=== PATIENT | male | born 1985 | race Caucasian/White ===

== ENCOUNTER 2016-11-18 12:55 | Inpatient (IN) | payer BC ==
[2016-11-18 14:09] VITALS: BMI 24.7
--- NOTE | 2016-11-18 14:24 | HP ---
COWS - Scale Resting Pulse: 0= [place] 80 or Below Sweatin=Flushed/Facial Moisture Restless Observation: 3= Extraneous Movement Pupil Size: 2= Moderately Dilated Bone or Joint Aches: 2= Severe Diffuse Aches Runny Nose/ Eye Tearin= Runny Nose/Eyes GI Upset > 30mins: 3= Vomiting/Diarrhea Tremor Observation: 2= Slight Tremor Visible Yawning Observation: 2= >3x During Session Anxiety or Irritability: 2=Irritable/Anxious Goose Flesh Skin: 0=Smooth Skin COWS Score: 20 CIWA Score - CIWA Score Nausea/Vomitin Muscle Tremors: 3 Anxiety: 3 Agitation: 3 Paroxysmal Sweats: 2 Orientation: 0-Oriented Tacttile Disturbances: 2-Mild Itch/Numbness/Burn Auditory Disturbances: 2-Mild Harshness/Frighten Visual Disturbances: 2-Mild Sensitivity Headache: 2-Mild CIWA-Ar Total Score: 22 Admission ROS BHS - HPI Chief Complaint: i need help to stop using heroin,xanax,cocaine Allergies/Adverse Reactions: Allergies Allergy/AdvReac Type Severity Reaction Status Date / Time No Known Allergies Allergy Verified 11/18/16 14:13 History of Present Illness: this 31 years old male with heroin,xanax,cocaine dependence,seeking detox,last detox ,last detox in [place] in 12/21 several admissions in the past but relapsed anxiety and depression hepatitis c cellulitis both forearms longest period of sobriety 3 months Exam Limitations: No Limitations - Ebola screening Have you traveled outside of the country in the last 21 days: No Have you been sick,other than usual withdrawal symptoms: No - Review of Systems Constitutional: Chills, Diaphoresis, Loss of Appetite, Malaise, Night Sweats, Changes in sleep, Weakness, Unintentional Wgt. Loss EENT: reports: Tearing, Nose Congestion Respiratory: reports: No Symptoms reported Cardiac: reports: No Symptoms Reported GI: reports: Diarrhea, Nausea, Vomiting, Abdominal cramping : reports: No Symptoms Reported Musculoskeletal: reports: Back Pain, Joint Pain, Muscle Pain, Joint Stiffness Integumentary: reports: Dryness, Erythema (both fprearms) Neuro: reports: Headache, Tremors Endocrine: reports: No Symptoms Reported Hematology: reports: No Symptoms Reported Psychiatric: reports: Anxious, Depressed Patient History - Patient Medical History Hx Anemia: No Hx Asthma: No Hx Chronic Obstructive Pulmonary Disease (COPD): No Hx Cancer: No Hx Cardiac Disorders: No Hx Congestive Heart Failure: No Hx Hypertension: No Hx Hypercholesterolemia: No Hx Pacemaker: No HX Cerebrovascular Accident: No Hx Seizures: No Hx Dementia: No Hx Diabetes: No Hx Gastrointestinal Disorders: No Hx Liver Disease: Yes (hepatitis c) Hx Genitourinary Disorders: No Hx Sexually Transmitted Disorders: No Hx Renal Disease (ESRD): No Hx Thyroid Disease: No Hx Human Immunodeficiency Virus (HIV): (never been tested for hiv) Hx Hepatitis C: Yes (not treated under the care of pmd) Hx Depression: Yes (anxiety ) Hx Suicide Attempt: No Hx Bipolar Disorder: No Hx Schizophrenia: No Other Medical History: no suicidal.no homicidal - Patient Surgical History Past Surgical History: No - PPD History Previous Implant?: Yes Documented Results: Negative w/o proof PPD to be Administered?: Yes - Smoking Cessation Smoking history: Current every day smoker Have you smoked in the past 12 months: Yes Aproximately how many cigarettes per day: 20 Cigars Per Day: 0 Hx Chewing Tobacco Use: No Initiated information on smoking cessation: Yes 'Breaking Loose' booklet given: 11/18/16 - Substance & Tx. History Hx Alcohol Use: No Hx Substance Use: Yes Substance Use Type: Heroin, Tranquilizers Hx Substance Use Treatment: Yes (12/21 in [place]) - Substances Abused Heroin Route: Injection Frequency: Daily Amount used: 20 BAGS Age of first use: 23 Date of Last Use: 11/18/16 Alprazolam (Xanax) Route: Oral Frequency: Daily Amount used: 3-4 MG Age of first use: 17 Date of Last Use: 11/18/16 Crack Route: Smoking Frequency: Daily Amount used: $20 Age of first use: 28 Date of Last Use: 11/14/16 Family Disease History - Family Disease History Family Disease History: Heart Disease: Father (alcohol,deseased), CA: Mother ( of beasst on chemotherapy) Admission Physical Exam S - Vital Signs Vital Signs: Vital Signs - 24 hr 11/18/16 14:07 Temperature 98.6 F Pulse Rate 61 Respiratory 18 Rate Blood Pressure 113/61 - Physical General Appearance: Yes: Moderate Distress, Tremorous, Irritable, Sweating, Anxious HEENTM: Yes: Hearing grossly Normal, CEASAR, Pharynx Normal, Nasal Congestion Respiratory: Yes: Lungs Clear, Normal Breath Sounds, No Respiratory Distress Neck: Yes: Within Normal Limits Breast: Yes: Within Normal Limits Cardiology: Yes: Within Normal Limits, Regular Rhythm, Regular Rate, S1, S2 Abdominal: Yes: Within Normal Limits, Normal Bowel Sounds, Non Tender, Flat, Soft Genitourinary: Yes: Within Normal Limits Back: Yes: Muscle Spasm Neurological: Yes: Within Normal Limits, technology strategist II-XII NML intact, Fully Oriented, Alert, Motor Strength 5/5 Integumentary: Yes: Dry, Track Unger (erythema both forearms cellulitis) - Diagnostic (1) Opioid dependence with withdrawal Current Visit: Yes Status: Acute (2) Uncomplicated sedative, hypnotic or anxiolytic withdrawal Current Visit: Yes Status: Acute (3) Cocaine dependence Current Visit: Yes Status: Acute (4) Anxiety and depression Current Visit: Yes Status: Acute (5) Hepatitis C Current Visit: Yes Status: Acute (6) Cellulitis Current Visit: Yes Status: Acute Cleared for Admission [facility] - Detox or Rehab [facility] Level of Care: Medically Managed Detox Regimen/Protocol: Methadone/Valium [facility] Breath Alcohol Content Breath Alcohol Content: 0 Urine Drug Screen - Results Urine Drug Screen Results: ESPERANZA-Cocaine, OPI-Opiates, MDMA-Ecstasy, BZO- Benzodiazepines
[2016-11-18] MEDS ORDERED: ACETAMINOPHEN 325 MG TABLET (FP) PO PRN (14:42)
[2016-11-18] MEDS ORDERED: MAG HYDROX/AL HYDROX/SIMETH 30 ML UNIT-DOSE CUP PO PRN (14:42)
[2016-11-18] MEDS ORDERED: guaiFENesin/D-METHORPHAN HB 10 ML UNIT-DOSE CUPS PO PRN (14:42)
[2016-11-18] MEDS ORDERED: IBUPROFEN 400 MG TABLET (FP) PO PRN (14:42)
[2016-11-18] MEDS ORDERED: NICOTINE POLACRILEX 2 MG GUM BUC PRN (14:42)
[2016-11-18] MEDS ORDERED: diphenhydrAMINE HCL 50 MG CAPSULE PO PRN (14:42)
[2016-11-18] MEDS ORDERED: MENTHOL/PHENOL 1 EACH UD MM PRN (14:42)
[2016-11-18] MEDS ORDERED: MAGNESIUM CITRATE 300 ML BOTTLE PO PRN (14:42)
[2016-11-18] MEDS ORDERED: hydrOXYzine PAMOATE 50 MG CAPSULE (FP) PO PRN (14:42)
[2016-11-18] MEDS ORDERED: P-EPHED 60MG/TRIPROLIDI 2.5MG TABLET PO PRN (14:42)
[2016-11-18] MEDS ORDERED: MAGNESIUM HYDROX 2400MG/30ML ORAL SUSPENSION 30 ML CUP PO PRN (14:42)
[2016-11-18] MEDS ORDERED: LOPERAMIDE HCL 2 MG CAPSULE PO PRN (14:42)
[2016-11-18] MEDS ORDERED: CYCLOBENZAPRINE HCL 10 MG TABLET (FP) PO PRN (14:46)
[2016-11-18] MEDS ORDERED: diazePAM 5 MG TABLET PO ONE (14:53)
[2016-11-18] MEDS ORDERED: METHADONE HCL 10 MG TABLET (FOR DETOX USE ONLY) PO ONE ×2 (14:54→23:00)
[2016-11-18] MEDS: NICOTINE 21 MG/24 HOURS TOPICAL PATCH TD SCH (15:18)
[2016-11-18 16:45] LABS: URINE APPEARANCE CLEAR; URINE BILIRUBIN NEGATIVE (NEGATIVE); URINE BLOOD NEGATIVE (NEGATIVE); URINE COLOR LTYELLOW; URINE GLUCOSE (UA) NEGATIVE (NEGATIVE); URINE KETONE NEGATIVE (NEGATIVE); URINE LEUK ESTERASE NEGATIVE (NEGATIVE); URINE NITRITE NEGATIVE (NEGATIVE); URINE PROTEIN NEGATIVE (NEGATIVE); URINE UROBILINOGEN NEGATIVE mg/dL (0.2-1.0)
[2016-11-18] MEDS: diazePAM 5 MG TABLET PO SCH (22:36)
[2016-11-18] MEDS: THIAMINE HCL 100 MG TABLET (FP) PO SCH (22:36)
[2016-11-18] MEDS: SULFAMETHOXAZOLE/TRIMETHOPRIM 800MG/160MG D.S. TABLET PO SCH (22:36)
[2016-11-19] MEDS: diazePAM 5 MG TABLET PO SCH ×3 (07:25→22:38)
[2016-11-19] MEDS: diazePAM 5 MG TABLET PO PRN ×2 (09:02→20:10)
--- NOTE | 2016-11-19 09:30 | CONSULT ---
[facility] Psychiatric Consult - Data Date of interview: 11/19/16 Admission source: [facility] Identifying data: First admission to [facility] for this 31 y/o male seeking detox treatment on for cocaine,heroin and benzodiazepine (xanax ) dependence.Patient is single without children,domiciled,unemployed and supported by his mother. Substance Abuse History: Patient is a hostile and marginally cooperative historian." I am tired of your questions.What I need is a telephone.How can I get one ? ".Mr Chavez,however,aknowledges that he uses xanax,heroin ( intravenously),cocaine and cigarettes (one pack daily).Reluctant to offer details. Medical History: Hepatitis C and cellulitis (both arms). Psychiatric History: Patient reports a history of one psychiatric hospitalization at a facility in [place].No additional details given.Mr Chavez denies past history of OPD care (medications or psychotherapy).Denies any contact with psychiatrists/therapists in the community.No history of suicide attempts reported. Physical/Sexual Abuse/Trauma History: No information. Additional Comment: Urine Drug Screen Results : positive for cocaine,opiates, MDMA-Ecstasy and benzodiazepines. Mental Status Exam - Mental Status Exam Alert and Oriented to: Time, Place, Person Cognitive Function: Good Patient Appearance: Unkempt, Disheveled Mood: Hostile, Withdrawn Affect: Normal Range Patient Behavior: Inappropriate (walking around with pants below waistline and hands kept in groin ), Uncooperative Speech Pattern: Clear Voice Loudness: Normal Thought Process: Goal Oriented Thought Disorder: Not Present Hallucinations: Denies Suicidal Ideation: Denies Homicidal Ideation: Denies Insight/Judgement: Poor Sleep: Fair Appetite: Good Gait/Station: Normal Psychiatric Findings - Problem List ([place] 1, 2,3) (1) Cocaine dependence Current Visit: Yes Status: Acute (2) Opioid dependence with withdrawal Current Visit: Yes Status: Acute (3) Uncomplicated sedative, hypnotic or anxiolytic withdrawal Current Visit: Yes Status: Acute (4) Nicotine dependence Current Visit: Yes Status: Acute (5) MDMA abuse Current Visit: Yes Status: Acute (6) Substance induced mood disorder Current Visit: Yes Status: Acute (7) Cellulitis Current Visit: Yes Status: Acute (8) Hepatitis C Current Visit: Yes Status: Chronic - Initial Treatment Plan Initial Treatment Plan: No previous records at [facility] for review.[facility] report is appreciated.Psychoeducation is rejected by patient.Detoxification is in progress.Observation.
[2016-11-19] MEDS ORDERED: METHADONE HCL 10 MG TABLET (FOR DETOX USE ONLY) PO SCH (10:00)
[2016-11-19 10:28] LABS: MCH 27.2 pg (25.7-33.7); MEAN CELL VOLUME 82.3 fl (80-96); MEAN PLT VOLUME 9.1 fl (7.5-11.1); PLATELET COUNT 174 K/MM3 (134-434); RDW 14.8 % (11.9-15.9); WHITE BLOOD COUNT 7.6 K/mm3 (4.0-10.0)
[2016-11-19 10:35] LABS: ANION GAP 7 (8-16); CALCIUM 9.7 mg/dL (8.5-10.1); CO2 31 mmol/L (21-32); GLUCOSE,RANDOM 98 mg/dL (74-106); SGOT/AST 13 U/L (15-37); SGPT/ALT 22 U/L (12-78)
[2016-11-19 10:37] LABS: ALK PHOS 85 U/L (45-117); BILIRUBIN,TOTAL 0.3 mg/dL (0.2-1.0); TOT PROT 8.1 g/dl (6.4-8.2)
[2016-11-19] MEDS: SULFAMETHOXAZOLE/TRIMETHOPRIM 800MG/160MG D.S. TABLET PO SCH ×2 (10:45→22:38)
[2016-11-19] MEDS: PRENATAL VITAMINS W/ FOLIC ACID TABLET (FP) PO SCH (10:45)
[2016-11-19] MEDS: NICOTINE 21 MG/24 HOURS TOPICAL PATCH TD SCH (10:48)
--- NOTE | 2016-11-19 14:09 | PN ---
[facility] CIWA - CIWA Score Nausea/Vomitin-Mild Nausea/No Vomiting Muscle Tremors: 4-Moderate,w/Arms Extend Anxiety: 3 Agitation: 2 Paroxysmal Sweats: 3 Orientation: 2-Disoriented Date<2 days Tacttile Disturbances: 0-None Auditory Disturbances: 2-Mild Harshness/Frighten Visual Disturbances: 0-None Headache: 0-None Present CIWA-Ar Total Score: 17 S COWS - Scale Resting Pulse: 0= [place] 80 or Below Sweatin= Chills/Flushing Restless Observation: 1= Difficult to Sit Still Pupil Size: 0= Normal to Room Light Bone or Joint Aches: 2= Severe Diffuse Aches Runny Nose/ Eye Tearin= Runny Nose/Eyes GI Upset > 30mins: 1= Stomach Cramp Tremor Observation of Outstretched Hands: 2= Slight Tremor Visible Yawning Observation: 1= 1-2x During Session Anxiety or Irritability: 2=Irritable/Anxious Goose Flesh Skin: 3=Piloerection COWS Score: 15 [facility] Progress Note (SOAP) Subjective: Tremors, Fatigue, Anxious, Body Aches. Objective: PT. A & O X 2 (DISORIENTED ABOUT DAY / DATE). NO ACUTE DISTRESS. 11/19/16 14:08 Vital Signs Temperature 97.4 F L 11/19/16 13:27 Pulse Rate 68 11/19/16 13:27 Respiratory Rate 18 11/19/16 13:27 Blood Pressure 132/80 11/19/16 13:27 O2 Sat by Pulse Oximetry (%) Laboratory Tests 11/18/16 11/19/16 11/19/16 15:02 06:00 06:00 WBC 7.6 RBC 5.00 Hgb 13.6 Hct 41.1 MCV 82.3 MCH 27.2 MCHC 33.0 RDW 14.8 Plt Count 174 MPV 9.1 Sodium 138 Potassium 4.1 Chloride 100 Carbon Dioxide 31 Anion Gap 7 L BUN 10 Creatinine 1.0 Creat Clearance w eGFR > 60 Random Glucose 98 Calcium 9.7 Total Bilirubin 0.3 AST 13 L ALT 22 Alkaline Phosphatase 85 Total Protein 8.1 Albumin 4.0 Urine Color Ltyellow Urine Appearance Clear Urine pH 5.0 Ur Specific [place] 1.025 Urine Protein Negative Urine Glucose (UA) Negative Urine Ketones Negative Urine Blood Negative Urine Nitrite Negative Urine Bilirubin Negative Urine Urobilinogen Negative Ur Leukocyte Esterase Negative RPR Titer 11/19/16 06:00 WBC RBC Hgb Hct MCV MCH MCHC RDW Plt Count MPV Sodium Potassium Chloride Carbon Dioxide Anion Gap BUN Creatinine Creat Clearance w eGFR Random Glucose Calcium Total Bilirubin AST ALT Alkaline Phosphatase Total Protein Albumin Urine Color Urine Appearance Urine pH Ur Specific [place] Urine Protein Urine Glucose (UA) Urine Ketones Urine Blood Urine Nitrite Urine Bilirubin Urine Urobilinogen Ur Leukocyte Esterase RPR Titer Nonreactive LABS NOTED. Assessment: 11/19/16 14:09 WITHDRAWAL SYMPTOMS. Plan: CONTINUE DETOX. INCREASE PO FLUID INTAKE.
[2016-11-19] MEDS: THIAMINE HCL 100 MG TABLET (FP) PO SCH (22:38)
[2016-11-20] MEDS ORDERED: METHADONE HCL 5 MG TABLET (FOR DETOX USE ONLY) PO SCH (10:00)
[2016-11-20] MEDS ORDERED: diazePAM 5 MG TABLET PO SCH (10:00)
[2016-11-20] MEDS: PRENATAL VITAMINS W/ FOLIC ACID TABLET (FP) PO SCH (10:34)
[2016-11-20] MEDS: SULFAMETHOXAZOLE/TRIMETHOPRIM 800MG/160MG D.S. TABLET PO SCH (10:35)
[2016-11-20] MEDS: NICOTINE 21 MG/24 HOURS TOPICAL PATCH TD SCH (10:37)
--- NOTE | 2016-11-20 13:28 | EKG ---
Test Reason : Blood Pressure : / mmHG Vent. Rate : 051 BPM Atrial Rate : 051 BPM P-R Int : 136 ms QRS Dur : 090 ms QT Int : 432 ms P-R-T Axes : 010 -04 001 degrees QTc Int : 398 ms SINUS BRADYCARDIA OTHERWISE NORMAL ECG NO PREVIOUS ECGS AVAILABLE Confirmed by ANYI CAMARENA, DENISA ([id number]) on 11/20/2016 1:28:02 PM Referred By: TIANNA PEDRAZA Confirmed By:DENISA DE SANTIAGO MD
[2016-11-20 13:35] VITALS: BP 111/73; PULSE 72; TEMP 98.2
--- NOTE | 2016-11-20 13:47 | PN ---
S CIWA - CIWA Score Nausea/Vomitin-Mild Nausea/No Vomiting Muscle Tremors: 4-Moderate,w/Arms Extend Anxiety: 4-Mod. Anxious/Guarded Agitation: 4-Moderately Restless Paroxysmal Sweats: No Perspiration Orientation: 0-Oriented Tacttile Disturbances: 1-Very Mild Itch/Numbness Auditory Disturbances: 0-None Visual Disturbances: 0-None Headache: 1-Very Mild CIWA-Ar Total Score: 15 [facility] COWS - Scale Resting Pulse: 0= [place] 80 or Below Sweatin= Chills/Flushing Restless Observation: 3= Extraneous Movement Pupil Size: 0= Normal to Room Light Bone or Joint Aches: 1= Mild Discomfort Runny Nose/ Eye Tearin= Runny Nose/Eyes GI Upset > 30mins: 2= Nausea/Diarrhea Tremor Observation of Outstretched Hands: 2= Slight Tremor Visible Yawning Observation: 1= 1-2x During Session Anxiety or Irritability: 2=Irritable/Anxious Goose Flesh Skin: 0=Smooth Skin COWS Score: 14 [facility] Progress Note (SOAP) Subjective: Nausea, tremor, chills, runny nose, interrupted sleep. Patient stated that he last ate on Monday and that he drank 3 small containers of apple juice yesterday and he is refusing to eat or shower. Patient stated, "I want to ." As per patient, he hasn't been getting out of bed and hasn't taken a shower since his admission. As per patient, he is feeling depressed because he is here and his mother forced him to be here. As per patient, he's going to be spiteful and not do anything that his mother wants him to do. Search Engine Optimization Strategist later ask patient how he plans on killing himself and he responded, "I will figure it out." Patient told this science writer that he is going to leave AMA later today. Patient later denied SI and that he never said anything about wanting to . Patient is presently on one to one observation for safety as recommended by Psychiatrist , Dr. Alejandro. Search Engine Optimization Strategist spoke with Dr. Alejandro via telephone and he also spoke with this patient and his RN. Patient was also seen by Dr. Castaneda and science writer and he agreed to be transferred via ambulance to [facility] for psychiatric evaluation. Patient made aware that he cannot leave AMA due to his SI and has to be discharged safely and that he is not ready for discharge. Objective: 11/20/16 13:47 A/A/Ox3, in nad, looks sad, VS at 0600 was radial pulse of 45 and bp 102/65 ( patient stated it's low because he refused to get out of bed and refused to eat or drink) Resp: uncooperative CV: uncooperative Skin: appears moist Gait: steady Last Vital Signs Temp Pulse Resp BP Pulse Ox 98.2 F 72 18 111/73 11/20/16 13:34 11/20/16 13:34 11/20/16 13:34 11/20/16 13:34 Laboratory Tests 11/18/16 11/19/16 11/19/16 15:02 06:00 06:00 WBC 7.6 RBC 5.00 Hgb 13.6 Hct 41.1 MCV 82.3 MCH 27.2 MCHC 33.0 RDW 14.8 Plt Count 174 MPV 9.1 Sodium 138 Potassium 4.1 Chloride 100 Carbon Dioxide 31 Anion Gap 7 L BUN 10 Creatinine 1.0 Creat Clearance w eGFR > 60 Random Glucose 98 Calcium 9.7 Total Bilirubin 0.3 AST 13 L ALT 22 Alkaline Phosphatase 85 Total Protein 8.1 Albumin 4.0 Urine Color Ltyellow Urine Appearance Clear Urine pH 5.0 Ur Specific [place] 1.025 Urine Protein Negative Urine Glucose (UA) Negative Urine Ketones Negative Urine Blood Negative Urine Nitrite Negative Urine Bilirubin Negative Urine Urobilinogen Negative Ur Leukocyte Esterase Negative RPR Titer 11/19/16 06:00 WBC RBC Hgb Hct MCV MCH MCHC RDW Plt Count MPV Sodium Potassium Chloride Carbon Dioxide Anion Gap BUN Creatinine Creat Clearance w eGFR Random Glucose Calcium Total Bilirubin AST ALT Alkaline Phosphatase Total Protein Albumin Urine Color Urine Appearance Urine pH Ur Specific [place] Urine Protein Urine Glucose (UA) Urine Ketones Urine Blood Urine Nitrite Urine Bilirubin Urine Urobilinogen Ur Leukocyte Esterase RPR Titer Nonreactive Labs noted Assessment: 11/20/16 13:49 Withdrawal symptoms Patient reports depression and SI Plan: Continue detox Depression and SI: transfer to [facility] via ambulance for psychiatric evaluation. Search Engine Optimization Strategist called [facility] ER, tel [phone] and gave verbal report to Romelia Coffey RN in ER. One to one observation for safety
--- NOTE | 2016-11-20 18:52 | PN ---
[facility] Progress Note Note: Psychiatrist food and beverage controller note: Called by Dr Butch NP and told that patient reported to her feeling depressed and wanted to . Remote Control Assembler asked to talk to patient on the phone. I had 2 phone conversations with patient. During the first one, he denied telling INSURANCE BILLING CLERK that he wanted to . Following that first contact with patient, I recommended that patient be placed on 1:1. During my second conversation with patient, he was confronted with his story. He was asked to be truthful about being suicidal because INSURANCE BILLING CLERK had no reason to call service writer at home to make such a report. He acknowledged saying to Dr Rae that he was feeling depressed and wanted to leave. He added to he never wanted to but he did not want to be here and wanted to leave. He said that detox is not doing anything for me because he was not given enough medication for his anxiety. He gave service writer authorization and phone [phone] to his mother, Gale. Talking to his mother, Remote Control Assembler found out that patient with his addiction is a source of stress for the family. Mother told service writer that she has cancer and getting chemotherapy. Mother begged service writer to not let patient out of detox. Mother was told that admission to detox is voluntary and patient can decide to leave at anytime. She wanted to talk to patient to convince him to stay. Remote Control Assembler called the unit counselor and recommend that patient be allowed to talk to his mother. Remote Control Assembler called mother back. She said that patient agreed to stay till tomorrow at which time she will come to the hospital to take him home. She said she has someone that will come on Monday to take him to a rehab. Remote Control Assembler called Dr Butch NP with recommendation to keep patient on the unit on 1:1 till tomorrow. INSURANCE BILLING CLERK told service writer that Dr Blankenship Whom service writer talked briefly earlier about patient has made the decision to send patient to [facility] for a psychiaric evaluation. At time , patient's name does not figure on 3N census. A note typed by Dr Butch NP note that patient was transferred via ambulance to [facility] for psychiatric evaluation
[2016-11-22] MEDS ORDERED: diazePAM 5 MG TABLET PO SCH (10:00)
[2016-11-22] MEDS ORDERED: METHADONE HCL 10 MG TABLET (FOR DETOX USE ONLY) PO SCH (10:00)
[2016-11-23] MEDS ORDERED: METHADONE HCL 5 MG TABLET (FOR DETOX USE ONLY) PO SCH (06:00)
== END 2016-11-20 14:02 | disposition short-term general hospital (02) | DRG 897 ==
LOC: YASAS 12:55 → Y3N 14:46
PROVIDERS: ADMIT Internal Medicine; ATTEND Internal Medicine
PROC: HZ2ZZZZ Detoxification Services for Substance Abuse Treatment (ICD-10-PCS; principal; 2016-11-20)
DX: F11.23 Opioid dependence with withdrawal (principal); F14.20 Cocaine dependence, uncomplicated; L03.114 Cellulitis of left upper limb; L03.113 Cellulitis of right upper limb; F13.230 Sedative, hypnotic or anxiolytic dependence with withdrawal, uncomplicated; F17.210 Nicotine dependence, cigarettes, uncomplicated; F15.10 Other stimulant abuse, uncomplicated; F19.24 Other psychoactive substance dependence with psychoactive substance-induced mood disorder; B18.2 Chronic viral hepatitis C
CPT/HCPCS: 36415; 80053; 81003; 85027; 86593; 93005; 93010